=== PATIENT | female | born 1965 | race Caucasian/White ===

== ENCOUNTER → 2019-05-31 | Day surgery (SDC) | payer BC, OTHER ==
[~2019-05-31] MED LIST: FENTANYL CITR 100 MCG/2 ML ONE; KETOROLAC 30 MG/ML INJ ONE; LIDOCAINE 1.5% W/EPI AMP 5 ML ONE; LIDOCAINE 2% MPF 5 ML VIAL ONE; MIDAZOLAM HCL 2 MG/2 ML INJ ONE; NA CHLORIDE 0.9% 2,000 ML ONE; PROPOFOL 200 MG/20 ML VIAL IV ONE; Ringers Lactate 1,000 ML IV ONE
[2019-05-31 07:46] LABS: Specific Gravity 1.025 (1.005-1.030)
--- NOTE | 2019-05-31 19:26 | OP ---
Date of Procedure: 05/31/2019 Surgeon: Freda Carter MD Preoperative Diagnoses: Postmenopausal bleeding, possible endometrial polyp. Postoperative Diagnoses: Postmenopausal bleeding and endometrial polyp. Procedures Performed: Hysteroscopy, polypectomy, dilation and curettage. Anesthesia: MAC plus paracervical block. Specimens: Polyp and endometrial curettings. Findings: Cavity with endometrium was unremarkable. Polyp arising from the posterior wall, about 1. 5 cm. Polyp removed in its entirety. Endometrial curettings were scant. Complications: No complications. Drains: No drains. Condition: Stable. Indications: The patient is a 54-year-old with postmenopausal bleeding. Ultrasound showed possibili ty of a polyp. She was consented for cavity visualization and possible removal of the polyp if prese nt and sampling to rule out endometrial atypia or malignancy. Description Of Procedure: After being consented, she was brought to the OR. She was re-consented in the preop and taken to the OR. She was placed in a supine fashion on the operating table. After MA C was given, she was placed in a dorsal lithotomy position. Pelvic exam was performed. Uterus was a nteflexed. No adnexal masses. Vulva and vagina were prepped with Betadine x3 and draped in a steril e fashion. Cervix was exposed with a speculum. Anterior lip was grasped with 2 Allis clamps after i njecting the cervix with 1.5% lidocaine mixed with 1:100,000 epinephrine. SlimLine diagnostic hyster oscope was used with a 30-degree lens and normal saline for direct hysteroscopy. Cervical canal was traversed under direct visualization and uterine cavity was entered. A polyp was seen as dictated ab ove. The diagnostic sheath was replaced with the operative sheath and scissors were passed through t his. The polyp was cut at its base. Once it was completely detached, the scissors were removed and graspers were placed and the base of the polyp was grasped firmly and then the entire scope with the grasper and the polyp were all pulled out gently. The polyp was removed in its entirety. Repeat hys teroscopy was performed. Pictures were taken to ensure the completion of the polypectomy and curetti ngs were performed with a #2 curette. Scant sample was obtained consistent with a thin endometrium. Instruments were removed. Instrument, needle, and sponge counts were done and were correct at the e nd of the case. The patient tolerated the procedure well. She will follow up with me in 1 week for results. LISA Voice ID: [id number] Report ID: [id number]
== END ==
LOC: OR 06:59
PROVIDERS: ATTEND Obstetrics & Gynecology
PROC: 0UDB8ZX Extraction of Endometrium, Via Natural or Artificial Opening Endoscopic, Diagnostic (ICD-10-PCS; 2019-05-31)
PROC: 0UB97ZX Excision of Uterus, Via Natural or Artificial Opening, Diagnostic (ICD-10-PCS; principal; 2019-05-31 08:30)
DX: N84.0 Polyp of corpus uteri (principal); N95.0 Postmenopausal bleeding; H81.03 Meniere's disease, bilateral
CPT/HCPCS: 81025; 88305; J2001; J2250; J2704; J3010; J7030

== ENCOUNTER 2019-11-18 13:27 | Emergency (ER) | payer BC, OTHER ==
[2019-11-18 14:24] LABS: Urine Specific Gravity 1.025 (1.005-1.030)
[2019-11-18 14:25] LABS: Urine Blood 3+ (NEG); Urine Glucose NEGATIVE (NEG); Urine Protein 1+ (NEG); Urine Specific Gravity 1.025 (1.005-1.030)
[2019-11-18] MEDS ORDERED: NA CHLORIDE 0.9% 1,000 ML ONE ×3 (14:32→16:24)
[2019-11-18 14:34] LABS: Absolute Lymphocytes (CBC) 0.5 K/uL (0.7-4.9); Basophils % 0.3 % (0-1.3); Hematocrit 37.1 % (36.0-45.0); Lymphocytes % 6.3 % (15.3-44.8); MPV 9.1 fL (7.6-11.3); RBC Red Blood Cell Count 4.18 M/uL (3.86-4.86)
--- NOTE | 2019-11-18 14:48 | RAD REPORT ---
EXAM DESCRIPTION: Sally Single View11/18/2019 2:34 pm CLINICAL HISTORY: Abdominal pain COMPARISON: none FINDINGS: The lungs appear clear of acute infiltrate. The heart is normal size IMPRESSION: No acute abnormalities displayed
[2019-11-18 14:54] LABS: Albumin 4.4 g/dL (3.4-5.0); Bilirubin Direct 0.1 mg/dL (0-0.2); Bilirubin Total 0.4 mg/dL (0.2-1.0); Potassium 3.3 mmol/L (3.5-5.1); Protein, Total 8.2 g/dL (6.4-8.2)
[2019-11-18 14:55] LABS: Urine Bacteria 20-50 /HPF (<20); Urine Culture Reflex Order NOT NEEDED; Urine Mucus 1+ /HPF (NONE SEEN); Urine RBC >50 /HPF (NONE SEEN)
[2019-11-18] MEDS ORDERED: FENTANYL CITR 100 MCG/2 ML ONE ×2 (14:59→19:20)
[2019-11-18] MEDS ORDERED: PROMETHAZINE INJ 25 MG/ML AMP ONE (15:28)
[2019-11-18 15:50] LABS: Blood Morphology Comment NOTED (NOT SEEN); Platelet Estimate ADEQ; Stomatocytes 1+; Urine White Blood Cell Casts OK
--- NOTE | 2019-11-18 15:54 | RAD REPORT ---
EXAM DESCRIPTION: CT - Abdomen Pelvis W Contrast - 11/18/2019 3:21 pm CLINICAL HISTORY: ABD PAIN COMPARISON: No comparisons TECHNIQUE: Biphasic, helical CT imaging of the abdomen and pelvis was performed following 100 ml non -ionic IV contrast. Oral contrast was given. All CT scans are performed using dose optimization technique as appropriate and may include automated exposure control or mA/KV adjustment according to patient size. FINDINGS: No suspicious findings in the lung bases. The liver, spleen, and pancreas show no suspicious findings. Gallbladder and biliary tree are also wi thout suspicious finding. Patient has a mild nonspecific periportal edema pattern that can be seen wi th hepatic parenchymal disease or as a secondary response to systemic disease. Liver has a Reidel lob e configuration. Mild to moderate dilatation of the pelvis, calices and proximal right ureter secondary to a 6 mm ston e. Small amount of fluid is present adjacent to the medial kidney. Function of the right kidney is de layed relative to the left. Pyelonephritis is not suspected. There is a 3 millimeter nonobstructing c alculus lower pole of the right kidney. On a KUB projection, the stone should be superimposed or in c lose proximity to the right L3 transverse process. No solid mass lesion. No bladder abnormalities. No adrenal abnormalities. No dilated bowel loops or bowel wall thickening. No free air or pneumatosis. Trace amount of free fl uid in the dependent pelvis within physiologic limits. No hernia, mass or bulky lymphadenopathy. No suspicious bony findings. IMPRESSION: Mild to moderate dilatation of the right side renal pelvis, calices and proximal ureter secondary to a 6 mm proximal stone. On a KUB projection the stone would be superimposed or in close proximity to the right transverse pro cess L3.
[2019-11-18] MEDS ORDERED: Levofloxacin500mg IV 500 MG/100 ML BAG IV ONE (16:23)
[2019-11-18] MEDS ORDERED: TAMSULOSIN 0.4 MG SR CAP ONE (16:23)
[2019-11-18] MEDS ORDERED: MAGNESIUM SULFATE 1 gm IVPB 1 GM/100 ML BAG IV ONE (16:23)
--- NOTE | 2019-11-18 18:44 | EDPHYS ---
Physician Documentation [facility] Name: Danya Taylor Age: 54 yrs Sex: Female : 1965 Arrival Date: 11/18/2019 Time: 13:28 Bed 23 Private MD: ED Physician Srinath Zamora HPI: 11/18 14:24 This 54 yrs old Female presents to ER via Ambulatory with complaints of snw Abdominal Pain. 14:24 The patient presents with abdominal pain right lower quadrant. Onset: The snw symptoms/episode began/occurred suddenly, yesterday. The symptoms do not radiate. Associated signs and symptoms: Pertinent positives: nausea, vomiting, and diarrhea. The symptoms are described as shooting, stabbing. Modifying factors: The symptoms are alleviated by nothing. Severity of pain: At its worst the pain was incapacitating in the emergency department the pain has improved markedly, s/p Toradol 60mg IM and Zofran 4mg po given at [facility]. The patient has not experienced similar symptoms in the past. The patient has been recently seen by a physician: pt saw Dr. Carter recently for uterine polyp and had US, unable to visualize right ovary well. Pt went to PCP today with severe right lower quad pain and was sent to ED for eval. 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 - Social history:: Smoking status: Patient/guardian denies using tobacco. - Ebola Screening: : Patient denies travel to an Ebola-affected area in the 21 days before illness onset. ROS: 14:23 Constitutional: Negative for fever, chills, and weight loss, Eyes: Negative for injury, snw pain, redness, and discharge, ENT: Negative for injury, pain, and discharge, Neck: Negative for injury, pain, and swelling, Cardiovascular: Negative for chest pain, palpitations, and edema, Respiratory: Negative for shortness of breath, cough, wheezing, and pleuritic chest pain. 14:23 : Negative for injury, bleeding, discharge, and swelling, Skin: Negative for injury, rash, and discoloration, Neuro: Negative for headache, weakness, numbness, tingling, and seizure. 14:23 MS/Extremity: Negative for injury and deformity. 14:23 Abdomen/GI: Positive for abdominal pain, nausea, vomiting, and diarrhea. 14:23 Back: Positive for radiated pain. Exam: 14:18 Constitutional: This is a well developed, well nourished patient who is awake, alert, snw and in no acute distress. Head/Face: Normocephalic, atraumatic. Eyes: Pupils equal round and reactive to light, extra-ocular motions intact. Lids and lashes normal. Conjunctiva and sclera are non-icteric and not injected. Cornea within normal limits. Periorbital areas with no swelling, redness, or edema. ENT: Nares patent. No nasal discharge, no septal abnormalities noted. Tympanic membranes are normal and external auditory canals are clear. Oropharynx with no redness, swelling, or masses, exudates, or evidence of obstruction, uvula midline. Mucous membranes moist. Neck: Trachea midline, no thyromegaly or masses palpated, and no cervical lymphadenopathy. Supple, full range of motion without nuchal rigidity, or vertebral point tenderness. No Meningismus. Chest/axilla: Normal chest wall appearance and motion. Nontender with no deformity. No lesions are appreciated. Cardiovascular: Regular rate and rhythm with a normal S1 and S2. No gallops, murmurs, or rubs. Normal PMI, no JVD. No pulse deficits. Respiratory: Lungs have equal breath sounds bilaterally, clear to auscultation and percussion. No rales, rhonchi or wheezes noted. No increased work of breathing, no retractions or nasal flaring. Back: No spinal tenderness. No costovertebral tenderness. Full range of motion. Skin: Warm, dry with normal turgor. Normal color with no rashes, no lesions, and no evidence of cellulitis. MS/ Extremity: Pulses equal, no cyanosis. Neurovascular intact. Full, normal range of motion. Neuro: Awake and alert, GCS 15, oriented to person, place, time, and situation. Cranial nerves II-XII grossly intact. Motor strength 5/5 in all extremities. Sensory grossly intact. Cerebellar exam normal. Normal gait. Psych: Awake, alert, with orientation to person, place and time. Behavior, mood, and affect are within normal limits. 14:18 Abdomen/GI: Inspection: abdomen appears normal, Bowel sounds: hyperactive, Palpation: mild abdominal tenderness, moderate abdominal tenderness, in the right lower quadrant. Vital Signs: 13:42 BP 126 / 58; Pulse 76; Resp 18; Temp 98.2; Pulse Ox 100% on R/A; Weight 64.86 kg (R); aj1 Height 5 ft. 6 in. (167.64 cm) (R); 13:42 Body Mass Index 23.08 (64.86 kg, 167.64 cm) aj1 MDM: 13:54 Patient medically screened. mona 18:45 Data reviewed: vital signs, nurses notes. Data interpreted: Pulse oximetry: on room air snw is 100 %. Counseling: I had a detailed discussion with the patient and/or guardian regarding: the historical points, exam findings, and any diagnostic results supporting the discharge/admit diagnosis, lab results, radiology results, the need for outpatient follow up, to return to the emergency department if symptoms worsen or persist or if there are any questions or concerns that arise at home. Response to treatment: the patient's symptoms have markedly improved after treatment, patient is well hydrated. will trial outpatient management. Pt given return warnings and agrees and understands plan of care. Special discussion: Based on the patient's Hx, exam, and Dx evaluation, there is no indication for emergent surgery or inpatient Tx. It is understood by the patient/guardian that if the Sx's persist or worsen they need to return immediately for re-evaluation. Based on the history and exam findings, there is no indication for further emergent testing or inpatient evaluation. I discussed with the patient/guardian the need to see the primary care provider for further evaluation of the symptoms. I discussed with the patient/guardian the need to see the urologist for further evaluation of the symptoms. 11/18 13:34 Order name: Basic Metabolic Panel; Complete Time: 14:55 snw 11/18 13:34 Order name: CBC with Diff; Complete Time: 15:51 w 11/18 13:34 Order name: Hepatic Function; Complete Time: 14:55 w 11/18 13:34 Order name: Lipase; Complete Time: 14:55 w 11/18 13:34 Order name: Urine Culture [facility] 11/18 13:34 Order name: Urine Microscopic Only; Complete Time: 15:01 w 11/18 13:34 Order name: CT Abd/Pelvis - PO and IV Contrast; Complete Time: 15:58 w 11/18 13:34 Order name: Chest Single View XRAY; Complete Time: 14:50 w 11/18 14:22 Order name: Urine Dipstick--Ancillary (enter results); Complete Time: 14:28 11/18 14:24 Order name: Urine --Ancillary (enter results) 11/18 14:25 Order name: Urine --Ancillary; Complete Time: 14:28 [facility] 11/18 15:43 Order name: CBC Smear Scan; Complete Time: 15:51 [facility] 11/18 13:34 Order name: IV Saline Lock; Complete Time: 14:25 [facility] 11/18 13:34 Order name: Labs collected and sent; Complete Time: 14:25 [facility] 11/18 13:34 Order name: NPO; Complete Time: 14:25 [facility] 11/18 13:34 Order name: Urine Dipstick-Ancillary (obtain specimen); Complete Time: 14:25 [facility] 11/18 13:34 Order name: EKG; Complete Time: 13:35 [facility] 11/18 13:34 Order name: EKG - Nurse/Tech; Complete Time: 14:25 snw Administered Medications: 14:30 Drug: NS 0.9% 1000 ml Route: IV; Rate: 125 ml/hr; Site: right antecubital; ls4 14:54 Drug: NS 0.9% 1000 ml Route: IV; Rate: 1 bolus; Site: right antecubital; ls4 15:02 Drug: fentaNYL (PF) 25 mcg Route: IVP; Site: right antecubital; ls4 15:30 Follow up: Response: No adverse reaction; Marked relief of symptoms ls4 15:30 Drug: Phenergan 6.25 mg Route: IVP; Site: right antecubital; ls4 16:30 Follow up: Response: No adverse reaction; Marked relief of symptoms ls4 16:17 Drug: NS 0.9% 1000 ml Route: IV; Rate: 1 bolus; Site: right antecubital; ls4 16:28 Drug: Magnesium Sulfate 1 grams Route: IVPB; Infused Over: 1 hrs; Site: right ls4 antecubital; 16:29 Drug: Flomax 0.4 mg Route: PO; ls4 17:43 Follow up: Response: No adverse reaction ls4 17:26 Drug: LevaQUIN 500 mg Volume: 100 ml; Route: IVPB; Infused Over: 60 mins; Site: right ls4 antecubital; Disposition: 20:39 Co-signature as Attending Physician, Srinath Zamora MD I agree with the assessment and mona plan of care. Disposition: 11/18/19 18:43 Discharged to Home. Impression: Hydronephrosis with renal and ureteral calculous obstruction. - Condition is Stable. - Discharge Instructions: Kidney Stones, Hydronephrosis, Dietary Guidelines to Help Prevent Kidney Stones, Rehydration, Adult. - Prescriptions for Levaquin 500 mg Oral Tablet - take 1 tablet by ORAL route once daily for 7 days; 7 tablet. Tylenol- Codeine #3 300-30 mg Oral Tablet - take 2 tablets by ORAL route every 6 hours As needed; 18 tablet. Flomax 0.4 mg Oral Capsule, Sust. Release 24 hr - take 1 capsule by ORAL route once daily 1/2 hour following the same meal each day; 30 capsule. Diclofenac Sodium 75 mg Oral Tablet Sustained Release - take 1 tablet by ORAL route 2 times per day; 30 tablet. promethazine 25 mg Oral Tablet - take 1 tablet by ORAL route every 6 hours As needed; 20 tablet. - Work release form, Medication Reconciliation Form, Thank You Letter, Antibiotic Education, Prescription Opioid Use form. - Follow up: Emergency Department; When: As needed; Reason: Worsening of condition. Follow up: Private Physician; When: 1 - 2 days; Reason: Recheck today's complaints, Continuance of care, Re-evaluation by your physician. Signatures: Dispatcher [employer] Yennifer Argueta RN RN Srinath Allen MD MD cha Therrien, Shelly, INSURANCE SALES SUPERVISOR-C INSURANCE SALES SUPERVISOR-Csnw Maddi Howell RN RN ls4 Corrections: (The following items were deleted from the chart) 19:32 18:43 11/18/2019 18:43 Discharged to Home. Impression: Hydronephrosis with renal and ls4 ureteral calculous obstruction. Condition is Stable. Forms are Medication Reconciliation Form, Thank You Letter, Antibiotic Education, Prescription Opioid Use. Follow up: Emergency Department; When: As needed; Reason: Worsening of condition. Follow up: Private Physician; When: 1 - 2 days; Reason: Recheck today's complaints, Continuance of care, Re-evaluation by your physician. snw
--- NOTE | 2019-11-18 18:44 | ER ---
Nurse's Notes [facility] Name: Danya Taylor Age: 54 yrs Sex: Female : 1965 Arrival Date: 11/18/2019 Time: 13:28 Bed 23 Private MD: Diagnosis: Hydronephrosis with renal and ureteral calculous obstruction Presentation: 11/18 13:38 Presenting complaint: Patient states: "Yesterday I had a stomach ache, felt better aj1 after going to the bathroom, this morning I woke up crampy, stomach ache, pain in my back I haven't eaten anything, the pain has been so bad like I'm in labor, I went to the clinic they gave me something for pain and nausea. I've been nauseous but nothing is coming up". Transition of care: patient was not received from another setting of care. Onset of symptoms was 2019. Risk Assessment: Do you want to hurt yourself or someone else? Patient reports no desire to harm self or others. Initial Sepsis Screen: Does the patient meet any 2 criteria? No. Patient's initial sepsis screen is negative. Does the patient have a suspected source of infection? Yes: Acute abdominal pain. Care prior to arrival: 13:38 Method Of Arrival: Ambulatory aj1 13:38 Acuity: SOFIA 3 aj1 Triage Assessment: 13:42 General: Appears in no apparent distress. uncomfortable, Behavior is calm, cooperative, aj1 appropriate for age. Pain: Complains of pain in left lower quadrant. Neuro: Level of Consciousness is awake, alert, obeys commands. Cardiovascular: Patient's skin is warm and dry. Respiratory: Airway is patent Respiratory effort is even, unlabored, Respiratory pattern is regular, symmetrical. GI: Reports lower abdominal pain, nausea. 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 - Social history:: Smoking status: Patient/guardian denies using tobacco. - Ebola Screening: : Patient denies travel to an Ebola-affected area in the 21 days before illness onset. Screenin:00 Abuse screen: Denies threats or abuse. Denies injuries from another. Nutritional ls4 screening: No deficits noted. Tuberculosis screening: No symptoms or risk factors identified. Fall Risk None identified. Assessment: 14:00 General: Appears in no apparent distress. uncomfortable, Behavior is calm, cooperative. ls4 Pain: Complains of pain in right lower quadrant and abdomen and left lower quadrant Pain currently is 7 out of 10 on a pain scale. Neuro: No deficits noted. Cardiovascular: No deficits noted. Respiratory: No deficits noted. GI: Bowel sounds present X 4 quads. Abd is soft Abdomen is tender to palpation in posterior aspect of right lateral abdomen, right upper quadrant and right lower quadrant. 15:44 Reassessment: Patient appears in no apparent distress at this time. Patient and/or ls4 family updated on plan of care and expected duration. Pain level reassessed. Patient is alert, oriented x 3, equal unlabored respirations, skin warm/dry/pink. SYMPTOMS IMPROVED. PT RESTING QUIETLY. Vital Signs: 13:42 BP 126 / 58; Pulse 76; Resp 18; Temp 98.2; Pulse Ox 100% on R/A; Weight 64.86 kg (R); aj1 Height 5 ft. 6 in. (167.64 cm) (R); 13:42 Body Mass Index 23.08 (64.86 kg, 167.64 cm) aj1 ED Course: 13:28 Patient arrived in ED. rg4 13:32 [facility]ccaule[facility]C [facility] snw 13:32 Srinath Zamora MD is Attending Physician. snw 13:40 Triage completed. aj1 13:42 Arm band placed on Patient placed in waiting room, Patient notified of wait time. aj1 14:00 Patient has correct armband on for positive identification. Allergy band placed. Placed ls4 in gown. Bed in low position. Call light in reach. Side rails up X 1. nurse monitoring on. Pulse ox on. NIBP on. Warm blanket given. Verbal reassurance given. Diet: Patient is NPO. 14:03 Maddi Howell, RN is Primary Nurse. ls4 14:25 Urine Culture Sent. lt1 14:25 Urine Microscopic Only Sent. lt1 14:27 Urine --Ancillary (enter results) Sent. lt1 14:30 Inserted saline lock: 20 gauge in right antecubital area, using aseptic technique. ls4 Blood collected. 14:35 EKG done, by bindery technician. reviewed by Jessica HUERTA. at1 14:38 Chest Single View XRAY In Process Unspecified. EDMS 15:21 CT Abd/Pelvis - PO and IV Contrast In Process Unspecified. EDMS 17:05 No provider procedures requiring assistance completed. ls4 Administered Medications: 14:30 Drug: NS 0.9% 1000 ml Route: IV; Rate: 125 ml/hr; Site: right antecubital; ls4 14:54 Drug: NS 0.9% 1000 ml Route: IV; Rate: 1 bolus; Site: right antecubital; ls4 15:02 Drug: fentaNYL (PF) 25 mcg Route: IVP; Site: right antecubital; ls4 15:30 Follow up: Response: No adverse reaction; Marked relief of symptoms ls4 15:30 Drug: Phenergan 6.25 mg Route: IVP; Site: right antecubital; ls4 16:30 Follow up: Response: No adverse reaction; Marked relief of symptoms ls4 16:17 Drug: NS 0.9% 1000 ml Route: IV; Rate: 1 bolus; Site: right antecubital; ls4 16:28 Drug: Magnesium Sulfate 1 grams Route: IVPB; Infused Over: 1 hrs; Site: right ls4 antecubital; 16:29 Drug: Flomax 0.4 mg Route: PO; ls4 17:43 Follow up: Response: No adverse reaction ls4 17:26 Drug: LevaQUIN 500 mg Volume: 100 ml; Route: IVPB; Infused Over: 60 mins; Site: right ls4 antecubital; Outcome: 18:43 Discharge ordered by . melanie 19:32 Patient left the ED. ls4 Signatures: Dispatcher [employer] EDMS Yennifer Zhang, RN RN aj1 Jessica Mccauley FNP-C OBSTETRICIAN-Kelliw Cecilia Alan, choir accompanist EKG Tat1 Sarah Justice rg4 Maddi Howell RN RN ls4 Janet, Makenna lt1
[2019-11-18 20:05] VITALS: BP 126/58; TEMP 98.2; O2SAT 100
--- NOTE | 2019-11-19 06:36 | EKG ---
Test Date: 2019-11-18 Test Time: 14:24:57 Pit Furnace Operator: ADEEL MEASUREMENT RESULTS: Intervals: Rate: 63 ND: 136 QRSD: 92 QT: 454 QTc: 464 [place]: P: 73 ND: 136 QRS: 76 T: 59 INTERPRETIVE STATEMENTS: Normal sinus rhythm Normal ECG No previous ECG available for comparison Electronically Signed On 11-19-19 06:35:45 HVAC OPERATIONS TECHNICIAN by Nadeem Carlin
== END 2019-11-18 19:32 | disposition home or self-care (01) ==
LOC: ER 13:27
DX: N13.2 Hydronephrosis with renal and ureteral calculous obstruction (principal); Z88.0 Allergy status to penicillin
CPT/HCPCS: 93005; 87088; 85025; 87086; 80048; 36415; 81025; 80076; 83690; 74177; 71045; 96375; 96374; 99284; Q9967; J2550; J3010 ×2; J3475; J7030 ×3; 81003; 81015

== ENCOUNTER 2021-01-15 19:36 | Emergency (ER) | payer BC, OTHER ==
--- OUTSIDE RECORDS SUMMARY | 2021-01-15 19:38 | XMS REPORT | Continuity of Care Document ---
:1965 Author Organization [facility] t Address [address] [place] [address] Care Team Providers Name Role Phone Doctor Unassigned, Name Attending Clinician Unavailable Problems This patient has no known problems. Allergies, Adverse Reactions, Alerts This patient has no known allergies or adverse reactions. Medications This patient has no known medications. Procedures This patient has no known procedures. Encounters Start End Encounter Admission Attending Care Care Encounter Source Date/Time Date/Time Type Type Clinicians Facility Department ID 2020-09-14 2020-09-14 Orders Doctor KISHORE [id number] 00:00:00 00:00:00 Only Unassigned, HERNANDEZ [id number] [place] [facility] [id number] Results This patient has no known results.
[2021-01-15] MEDS ORDERED: LIDOCAINE 1% MPF 30 ML VIAL ONE (23:55)
[2021-01-15] MEDS ORDERED: TETANUS & DIPHTHERIA TOX,ADULT 0.5 ML VIAL ONE (23:55)
[2021-01-15] MEDS ORDERED: HYDROCODONE/APAP 7.5/325 MG TAB ONE (23:55)
--- NOTE | 2021-01-16 00:26 | ER ---
Nurse's Notes [facility] Name: Danya Taylor Age: 55 yrs Sex: Female : 1965 Arrival Date: 01/15/2021 Time: 19:46 Bed 6 Private MD: Diagnosis: Bitten by dog;Laceration without foreign body of right hand;Puncture wound without foreign body of lower leg-Right Presentation: 01/15 19:47 Chief complaint: Patient states: Her dog was attacked by two large dogs. She tried to ll1 stop the dogs. Bite to R hand and R knee. Bleeding controlled. 2 lacerations to palm (<2 cm a piece). Coronavirus screen: Client denies travel out of the [place] in the last 14 days. At this time, the client does not indicate any symptoms associated with coronavirus-19. Ebola Screen: Patient denies travel to an Ebola-affected area in the 21 days before illness onset. Initial Sepsis Screen: Does the patient meet any 2 criteria? HR > 90 bpm. No. Patient's initial sepsis screen is negative. Does the patient have a suspected source of infection? Yes: Skin breakdown/wound. Risk Assessment: Do you want to hurt yourself or someone else? Patient reports no desire to harm self or others. Onset of symptoms was January 15, 2021. 19:47 Method Of Arrival: EMS ll1 19:47 Acuity: SOFIA 4 ll1 Triage Assessment: 01/16 00:00 Bite description: bite sustained to right hand by a dog, animal information: ea vaccination(s) is current. Historical: - Allergies: 01/15 19:47 PENICILLINS; ll1 - PMHx: 19:47 menieres; Kidney stones; ll1 - PSHx: 19:47 kidney stones removed; cyst removed from ovary; ll1 - Immunization history:: Last tetanus immunization: > 10 years ago Flu vaccine is up to date. - Social history:: Smoking status: Patient denies any tobacco usage or history of. Screenin/17 00:00 Abuse screen: Denies threats or abuse. Nutritional screening: No deficits noted. ea Tuberculosis screening: No symptoms or risk factors identified. Fall Risk None identified. Assessment: 00:00 General: Appears in no apparent distress. Behavior is calm, cooperative, appropriate ea for age. General: Pt reports Animal control was at scene and a case was started. Pain: Complains of pain in right hand. Neuro: Level of Consciousness is awake, alert, obeys commands, Oriented to person, place, time. Respiratory: Airway is patent Respiratory effort is even, unlabored, Respiratory pattern is regular, symmetrical. Derm: Skin laceration to right hand. 00:52 Reassessment: Patient and/or family updated on plan of care and expected duration. Pain ea level reassessed. Patient is alert, oriented x 3, equal unlabored respirations, skin warm/dry/pink. Discharge instruction given to patient verbalized the understanding of instruction. Pt left ED ambulatory tolerating well. Vital Signs: 01/15 19:47 BP 146 / 83; Pulse 101; Resp 16; Temp 98.7; Pulse Ox 100% on R/A; Weight 64.41 kg; ll1 Height 5 ft. 6 in. (167.64 cm); Pain 6/10; 01/16 00:53 BP 120 / 70; Pulse 88; Resp 16; Temp 98.5; Pulse Ox 99% on R/A; ea 01/15 19:47 Body Mass Index 22.92 (64.41 kg, 167.64 cm) ll1 ED Course: 01/15 19:46 Patient arrived in ED. ll1 19:46 Arm band placed on. ll1 19:51 Triage completed. ll1 23:16 Srinath Kirkland PA is PHCP. cp 23:16 Srinath Zamora MD is Attending Physician. cp 23:30 Varun Koch, RN is Primary Nurse. em 23:56 XRAY Hand RIGHT 3 View In Process Unspecified. EDMS 23:57 XRAY Tib Fib RIGHT In Process Unspecified. EDMS 01/16 00:00 Patient has correct armband on for positive identification. Bed in low position. Call ea light in reach. Side rails up X 1. 00:23 Bartolo Shepherd MD is Referral Physician. cp 00:53 No provider procedures requiring assistance completed. Patient did not have IV access ea during this emergency room visit. Administered Medications: 00:07 Not Given (Other Intervention Used): Hydrocodone-Acetaminophen (7.5 mg-325 mg) 1 tabs ea PO once; RASS on ADMIN: Combtv4, Very Agttd3, Agttd2, Rstlss1, AlertClm0, Drwsy-1, Lt Sdtn-2, Mod Sdtn-3, Dp Sdtn-4, UnArsble-5 00:11 Drug: Lidocaine (1 %) 10 ml Volume: 20 ml; Route: Infiltration; ea 00:11 Drug: traMADol 50 mg Route: PO; ea 00:48 Follow up: Response: No adverse reaction ea 00:30 Drug: Tetanus-Diphtheria Toxoid Adult 0.5 ml {Recorder Helper Seismograph: [employer]. Exp: ea 09/30/2021. Lot #: [id number]. } Route: IM; Site: left deltoid; 00:47 Follow up: Response: No adverse reaction ea 00:47 Drug: Bactrim (160 mg-800 mg (DS) 1 tablet Route: PO; ea 00:48 Follow up: Response: Medication administered at discharge. ea 00:47 Drug: Clindamycin 300 mg Route: PO; ea 00:48 Follow up: Response: Medication administered at discharge. ea Outcome: 00:26 Discharge ordered by MD. anastasia 00:53 Discharged to home ambulatory, with family. ea 00:53 Condition: stable 00:53 Discharge instructions given to patient, Instructed on discharge instructions, follow up and referral plans. medication usage, Demonstrated understanding of instructions, follow-up care, medications. 00:54 Patient left the ED. ea Signatures: Dispatcher [employer] EDVarun Cheema RN Srinath Gordon PA PA cp Antunez, Elena, RN RN ea Lewis, Lynsay, RN RN ll1 Corrections: (The following items were deleted from the chart) 00:52 00:49 Derm: Skin laceration to right hand ea ea 00: 00:49 General: Appears in no apparent distress. Behavior is calm, cooperative, ea appropriate for age, ea 00:52 00:49 Pain: Complains of pain in right hand ea ea 00:52 00:49 Neuro: Level of Consciousness is awake, alert, obeys commands, Oriented to ea person, place, time, ea 00:52 00:49 Respiratory: Airway is patent Respiratory effort is even, unlabored, Respiratory ea pattern is regular, symmetrical, ea 00:52 00:49 General: Pt reports Animal control was at scene and a case was started. ea ea
--- NOTE | 2021-01-16 00:26 | EDPHYS ---
Physician Documentation [facility] Name: Danya Taylor Age: 55 yrs Sex: Female : 1965 Arrival Date: 01/15/2021 Time: 19:46 Bed 6 Private MD: ED Physician Srinath Zamora HPI: 01/15 23:30 This 55 yrs old Female presents to ER via EMS with complaints of Dog Bite. cp 23:30 The patient was bitten on the right hand and right lower leg, by a dog, while trying to cp stop animals from fighting, in an unprovoked manner, outdoors. Onset: The symptoms/episode began/occurred just prior to arrival. Animal information: Patient/Caregiver unable to provide information related to the animal. Animal control has been notified. Secondary to the bite the patient reports multiple lacerations, with the longest being 3 cm(s), noted to hyper thenar eminence of right hand, a puncture wound, that is superficial, noted to right lower leg. Associated signs and symptoms: Pertinent negatives: motor deficit, numbness distal to wound. Historical: - Allergies: 19:47 PENICILLINS; ll1 - PMHx: 19:47 menieres; Kidney stones; ll1 - PSHx: 19:47 kidney stones removed; cyst removed from ovary; ll1 - Immunization history:: Last tetanus immunization: > 10 years ago Flu vaccine is up to date. - Social history:: Smoking status: Patient denies any tobacco usage or history of. ROS: 23:35 MS/extremity: Positive for laceration, of the right hand, superficial puncture wound of cp right lower leg, Negative for decreased range of motion, paresthesias. 23:35 Constitutional: Negative for fever. cp 23:35 Cardiovascular: Negative for chest pain. 23:35 Respiratory: Negative for cough, shortness of breath. 23:35 Abdomen/GI: Negative for abdominal pain, nausea, vomiting, and diarrhea. 23:35 Neuro: Negative for altered mental status, headache, weakness. 23:35 All other systems are negative. Exam: 23:40 Constitutional: The patient appears in no acute distress, alert, awake, non-toxic, well cp developed, well nourished. 23:40 Head/Face: Normocephalic, atraumatic. cp 23:40 Chest/axilla: Inspection: normal. 23:40 Cardiovascular: Rate: tachycardic. 23:40 Respiratory: the patient does not display signs of respiratory distress, Respirations: normal, no use of accessory muscles, no retractions, labored breathing, is not present. 23:40 Abdomen/GI: Exam negative for discomfort, distension, guarding, Inspection: abdomen appears normal. 23:40 Skin: injury, laceration(s), the wound is approximately 3 cm(s), of the hyper thenar eminence of right hand, the second wound is approximately 1 cm(s), of the proximal hyper thenar eminence of right hand, that can be described as no foreign body, linear, with mild bleeding, puncture(s), that are superficial, of the proximal tibia right lower leg. 23:40 Neuro: Orientation: to person, place \T\ time. Mentation: is normal. Vital Signs: 19:47 BP 146 / 83; Pulse 101; Resp 16; Temp 98.7; Pulse Ox 100% on R/A; Weight 64.41 kg; ll1 Height 5 ft. 6 in. (167.64 cm); Pain 6/10; 01/16 00:53 BP 120 / 70; Pulse 88; Resp 16; Temp 98.5; Pulse Ox 99% on R/A; ea 01/15 19:47 Body Mass Index 22.92 (64.41 kg, 167.64 cm) ll1 MDM: 01/15 23:17 Patient medically screened. cp 01/16 00:25 Data reviewed: vital signs, nurses notes, radiologic studies, plain films. cp 00:25 Test interpretation: by ED physician or midlevel provider: xrays of right hand negative cp for fracture and/or foreign body, xrays of right tib/fib negative for fracture. Counseling: I had a detailed discussion with the patient and/or guardian regarding: radiology results. 01/15 23:23 Order name: XRAY Hand RIGHT 3 View cp 01/15 23:23 Order name: XRAY Tib Fib RIGHT cp 01/15 23:23 Order name: Wound Care; Complete Time: 00:31 cp Administered Medications: 00:07 Not Given (Other Intervention Used): Hydrocodone-Acetaminophen (7.5 mg-325 mg) 1 tabs ea PO once; RASS on ADMIN: Combtv4, Very Agttd3, Agttd2, Rstlss1, AlertClm0, Drwsy-1, Lt Sdtn-2, Mod Sdtn-3, Dp Sdtn-4, UnArsble-5 00:11 Drug: Lidocaine (1 %) 10 ml Volume: 20 ml; Route: Infiltration; ea 00:11 Drug: traMADol 50 mg Route: PO; ea 00:48 Follow up: Response: No adverse reaction ea 00:30 Drug: Tetanus-Diphtheria Toxoid Adult 0.5 ml {Associate Dentist: [employer]. Exp: ea 09/30/2021. Lot #: [id number]. } Route: IM; Site: left deltoid; 00:47 Follow up: Response: No adverse reaction ea 00:47 Drug: Bactrim (160 mg-800 mg (DS) 1 tablet Route: PO; ea 00:48 Follow up: Response: Medication administered at discharge. ea 00:47 Drug: Clindamycin 300 mg Route: PO; ea 00:48 Follow up: Response: Medication administered at discharge. ea Disposition: 08:21 Co-signature as Attending Physician, Srinath Zamora MD I agree with the assessment and mona plan of care. Disposition: 01/16/21 00:26 Discharged to Home. Impression: Bitten by dog, Laceration without foreign body of right hand, Puncture wound without foreign body of lower leg - Right. - Condition is Stable. - Discharge Instructions: Laceration Care, Adult, Nonsutured Laceration Care, Puncture Wound, Animal Bite. - Prescriptions for Clindamycin HCl 300 mg Oral Capsule - take 1 capsule by ORAL route every 6 hours for 10 days; 40 capsule. Tramadol 50 mg Oral Tablet - take 1 tablet by ORAL route every 8 hours as needed; 12 tablet. Bactrim DS 800- 160 mg Oral Tablet - take 1 tablet by ORAL route every 12 hours for 10 days; 20 tablet. - Medication Reconciliation Form, Thank You Letter, Antibiotic Education, Prescription Opioid Use form. - Follow up: Bartolo Shepherd MD; When: 1 - 2 days; Reason: dog bite and laceration to right hand. - Problem is new. - Symptoms have improved. Signatures: Dispatcher [employer] Srinath Dockery MD MD cha Page, Corey, PA PA cp Antunez, Elena, RN oBbby Benson ea, RN RN ll1 Corrections: (The following items were deleted from the chart) 00:54 00:26 01/16/2021 00:26 Discharged to Home. Impression: Bitten by dog; Laceration ea without foreign body of right hand; Puncture wound without foreign body of lower leg - Right. Condition is Stable. Forms are Medication Reconciliation Form, Thank You Letter, Antibiotic Education, Prescription Opioid Use. Follow up: Bartolo Shepherd; When: 1 - 2 days; Reason: dog bite and laceration to right hand. Problem is new. Symptoms have improved. cp
[2021-01-16] MEDS ORDERED: SMZ./TMP. 800/160 MG TABLET ONE (00:53)
[2021-01-16 01:16] VITALS: BP 120/70; TEMP 98.5; O2SAT 99
--- NOTE | 2021-01-16 08:16 | RAD REPORT ---
EXAM DESCRIPTION: RAD - Tib Fib Right - 01/15/2021 11:57 pm CLINICAL HISTORY: Right leg pain FINDINGS: No fracture is seen. A radiopaque foreign body not noted
--- NOTE | 2021-01-16 08:17 | RAD REPORT ---
EXAM DESCRIPTION: RAD - Hand Right 3 View - 01/15/2021 11:57 pm CLINICAL HISTORY: Right hand pain status post injury FINDINGS: No fracture or dislocation is seen. A radiopaque foreign body not noted
== END 2021-01-16 00:54 | disposition home or self-care (01) ==
LOC: ER 19:36
DX: S61.411A Laceration without foreign body of right hand, initial encounter (principal); S81.811A Laceration without foreign body, right lower leg, initial encounter; W54.0XXA Bitten by dog, initial encounter; Z23 Encounter for immunization
CPT/HCPCS: 90471; 90714; 99283